=== PATIENT | female | born 1970 | race Caucasian/White ===

== ENCOUNTER 2016-04-30 16:27 | Outpatient (RCR) | payer BC ==
[~2016-04-30 16:27] MED LIST: AMOX500C5 PO; NORG1TAB14 PO; OMEP20CA6 PO; RANI150T15 PO; WELLBUTRIN XL PO
== END 2016-07-29 | disposition home or self-care (01) ==
LOC: DT 16:27
PROVIDERS: ATTEND Family Medicine
DX: E66.09 Other obesity due to excess calories (principal); Z68.37 Body mass index [BMI] 37.0-37.9, adult; Z71.3 Dietary counseling and surveillance
CPT/HCPCS: 97802